=== PATIENT | male | born 1955 | race Caucasian/White ===

== ENCOUNTER 2020-01-04 13:59 | Outpatient (CLI) | payer MEDICAID ==
[~2020-01-04] VITALS: Ht 170.2 cm; Wt 62.1 kg
[2020-01-04 15:12] VITALS: BP 115/66
[2020-01-04] MEDS ORDERED: ZOLOFT100 MG ORAL (15:12)
[2020-01-04] MEDS ORDERED: FOLIC ACID1 MG ORAL (15:12)
[2020-01-04] MEDS ORDERED: ACETAMINOPHEN500 M3 ORAL (15:12)
[2020-01-04] MEDS ORDERED: SEROQUEL200 MG ORAL (15:12)
--- NOTE | 2020-01-04 17:30 | Consultation ---
DATE OF CONSULTATION: 01/04/2020 CONSULTING PHYSICIAN: Daniel Caro M.D. CHIEF COMPLAINT: Stool OB positive, weight loss, screening colonoscopy, evaluation of constipation. PAST MEDICAL HISTORY: 1. Rheumatoid arthritis. 2. Alcohol abuse. 3. Bipolar disorder. 4. Hypertension. 5. COPD. PAST SURGICAL HISTORY: None. MEDICATIONS: He is on Seroquel, acetaminophen, folic acid, sertraline. FAMILY HISTORY: Noncontributory. SOCIAL HISTORY: The patient smokes and drinks. No drugs. He is homeless. ALLERGIES: No known drug allergies. PHYSICAL EXAMINATION: VITAL SIGNS: Temperature 97.6, blood pressure 115/66, pulse is 81, respirations 20. HEENT: Normocephalic and atraumatic. Sclerae anicteric. NECK: Supple. No evidence of obvious lymphadenopathy. CARDIOVASCULAR: Regular rate and rhythm. Plus S1 and S2. LUNGS: Clear to auscultation bilaterally. ABDOMEN: Positive bowel sounds. Soft and nontender. No rebound. No guarding. No peritoneal sign. EXTREMITIES: No cyanosis. No clubbing. No edema. ASSESSMENT AND PLAN: This is a 64-year-old patient never had a colonoscopy or endoscopy, complained of constipation, stool OB positive, weight loss. Needs both endoscopy and colonoscopy. The patient was given instruction for both procedures. Risks and benefits of procedure was explained to him. The prep was explained to him. We are going to go ahead and schedule him as soon as authorization is obtained. Daniel Caro M.D. DR: PETERSON JOB#: [id number] CC:
== END 2020-01-04 15:59 | disposition home or self-care (01) ==
LOC: PAN 13:59
DX: R63.4 Abnormal weight loss (principal); K59.00 Constipation, unspecified; J30.9 Allergic rhinitis, unspecified; F31.9 Bipolar disorder, unspecified; I10 Essential (primary) hypertension; J44.9 Chronic obstructive pulmonary disease, unspecified; Z79.899 Other long term (current) drug therapy; Z59.0 Homelessness; F17.200 Nicotine dependence, unspecified, uncomplicated
CPT/HCPCS: G0463